=== PATIENT | male | born 1985 | race Caucasian/White ===

== ENCOUNTER 2021-04-08 20:25 | Emergency (ER) | payer OTHER ==
[~2021-04-08] VITALS: Ht 185.4 cm; Wt 122.5 kg
--- NOTE | ~2021-04-08 | EMS ---
[address] [address] EMS Patient Care Report Name: KAPIL GUTIÉRREZ Room #: DEP CRISTIAN Mandel#: [id number] Admission: 04/08/21 Attend Phys: Discharge: 04/09/21 Date of : 85 Report #: [id number] THIS REPORT FOR: //name// Report Transmitted: 04/10/2021 09:44 EMS Care Summary [place], [place]/[facility] Incident [id number] @ 04/08/2021 19:50 Incident Location [address] [place] [id number] Patient KAPIL GUTIÉRREZ Male, 36 Years 1985 Patient Address Patient History Alcohol Abuse, Patient Allergies No known allergies, Patient Medications None Reported, Chief Complaint ETOH ABUSE Disposition Transported No Lights/[place] Dispatch Reason Sick Person Transported To [facility] Narrative UPON ARRIVAL WE FOUND OUR 36 YEAR OLD MALE PATIENT, WITH A HX OF ALCOHOLISM, SITTING IN HANDCUFFS ON THE BACK BUMPER OF A [facility] [employer] IN THE [employer] [place] COMPLAINING OF "COMING DOWN HARD" SINCE CONSUMING A FIFTH OF VODKA TODAY. [facility] STATES THE PATIENT IS UNDER ARREST FOR TRESSPASSING ON [employer] PROPERTY AFTER BEING BANNED. [facility] REQUESTS THE PATIENT BE TRANSPORTED TO [facility] FOR EVALUATION. [address] [address] EMS Patient Care Report Name: KAPIL GUTIÉRREZ Room #: DEP ER [place]#: [id number] Admission: 04/08/21 Attend Phys: Discharge: 04/09/21 Date of : 85 Report #: [id number] Initial Vitals @20:11P: 104,R: 18,BP: 153/96,Pain: 0/10,GCS: 15,Glucose: 135,SpO2: 96,Revised Trauma: 12, @20:20P: 100,R: 18,BP: 150/96,Pain: 0/10,GCS: 15,SpO2: 98,Revised Trauma: 12, Assessments @20:06MENTAL:Other,Place Oriented,Person Oriented,Event Oriented,Time Oriented,SKIN:HEENT:Eyes: Left Pupil: 4-mm,Eyes: Left: Other,Head/Face: Other,Eyes: Right: Other,Eyes: Right Pupil: 4-mm,Neck/Airway: No Abnormalities,LUNG SOUNDS:General: No Abnormalities,ABDOMEN:General: No Abnormalities,PELVIS//GI:No Abnormalities,EXTREMITIES:Left Arm: No Abnormalities,Right Arm: No Abnormalities,Left Leg: No Abnormalities,Right Leg: No Abnormalities,PULSE:Radial: 2+ Normal,NEURO:Slurred Speech,Abnormal Gait, Impression Alcohol use Procedures @20:06ALS AssessmentResponse: UnchangedSucceeded Timeline 19:44,Call Received 19:44,Dispatch Notified 19:50,Dispatched 19:51,En Route 20:05,On Scene 20:06,At Patient 20:06,ALS Assessment,Response: UnchangedSucceeded, 20:11,BP: 153/96 M,PULSE: 104,RR: 18 R,SPO2: 96 Ox,ETCO2: ,B,PAIN: 0,GCS: 15, 20:11,Depart Scene 20:20,BP: 150/96 M,PULSE: 100,RR: 18 R,SPO2: 98 Ox,ETCO2: ,BG: ,PAIN: 0,GCS: 15, 20:21,At Destination 20:33,Call Closed Disclaimer [email or web address] Copyright 2020 [employer] This EMS Care Summary contains data elements from the applicable legal record (which may be displayed differently). It is designed to provide pertinent information for the following purposes: continuity of care, clinical quality, and state data reporting. The complete legal record is available to ED staff and administrators of the receiving hospital in [employer] Patient Tracker. All data is provided "as is."
[2021-04-08] MEDS ORDERED: LEXAPRO 10 MG T10 M1 PO (20:44)
[2021-04-08] MEDS ORDERED: HYDROXYZINE HCL25 M2 PO (20:44)
[2021-04-08] MEDS ORDERED: TRAZODONE HCL50 MG PO (20:44)
[2021-04-09 09:40] VITALS: BP 146/84
== END 2021-04-09 14:15 | disposition home or self-care (01) ==
LOC: ER 20:25
DX: F10.129 Alcohol abuse with intoxication, unspecified (principal); Z79.899 Other long term (current) drug therapy